=== PATIENT | female | born 1970 | race Caucasian/White ===

== ENCOUNTER 2018-06-11 10:13 | Emergency (ER) | payer BC, OTHER ==
[2018-06-11 10:34] VITALS: BP 123/79
--- NOTE | 2018-06-11 11:28 | CT ---
Head CT Technique: Multiple axial sections through the brain were obtained. Intravenous contrast was not utilized. Comparison: No previous intracranial imaging is available. Findings: Ventricles along with basal cisterns and sulci over the convexities appear within normal limits. No abnormal parenchymal densities are seen. No evidence of intracranial hemorrhage. No midline shift or mass effect is seen. No discrete calvarial abnormality is seen. Mild mucosal thickening is partially visualized within the right maxillary sinus. Impression: 1. Sinus finding most likely pre-existing and chronic. 2. No acute intracranial abnormality is identified. Diagnostic code #2
--- NOTE | 2018-06-11 11:54 | EDM.PDOC ---
ED HPI GENERAL MEDICAL PROBLEM - General Chief Complaint: Head Injury Stated Complaint: HEAD INJURY Time Seen by Provider: 06/11/18 10:29 Source of Information: Reports: Patient, Other (Friend) History Limitations: Reports: No Limitations - History of Present Illness INITIAL COMMENTS - FREE TEXT/NARRATIVE: The patient presents with a head injury. She was dizzy this morning when getting out of bed and his her head on a hinge. She had no LOC. She has a 2.8cm laceration. She did take a xanbar last night. That is xanax in a bar form. She normally does not take that. She has a headache. She has no numbness or weakness. Her tetanus is not up to date. She denies any other injuries. Onset: Sudden Duration: Minutes: Location: Reports: Head Quality: Reports: Sharp Severity: Mild Improves with: Reports: None Worsens with: Reports: None Context: Reports: Trauma (Fell out of bed) Associated Symptoms: Reports: No Other Symptoms front of head Pain Score (Numeric/FACES): 4 - Related Data Allergies Allergy/AdvReac Type Severity Reaction Status Date / Time No Known Allergies Allergy Verified 06/11/18 10:34 Home Meds: Home Meds Lisinopril [Zestril] 40 mg PO BEDTIME 11/22/13 [History] Metoprolol Succinate [Toprol XL 100mg] 100 mg PO BEDTIME 11/22/13 [History] Omeprazole Magnesium [Prilosec] 2.5 mg PO BEDTIME PRN 11/22/13 [History] buPROPion HCl [Wellbutrin SR] 300 mg PO BEDTIME 11/22/13 [History] Docusate Sodium [Colace] 50 mg PO DAILY 12/25/14 [History] QUEtiapine [SEROquel] 25 - 50 mg PO BEDTIME PRN 12/25/14 [History] Sertraline HCl [Zoloft] 100 mg PO QPM 12/25/14 [History] Past Medical History Cardiovascular History: Reports: Hypertension Gastrointestinal History: Reports: Cholelithiasis [employer] 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: Psychiatric History: Reports: Anxiety, Depression - Past Surgical History GI Surgical History: Reports: Appendectomy, Cholecystectomy Social & Family History - Family History Family Medical History: Noncontributory - Tobacco Use Smoking Status *Q: Current Every Day Smoker Years of Tobacco use: 10 Packs/Tins Daily: 0.2 - Caffeine Use Caffeine Use: Reports: Soda - Recreational Drug Use Recreational Drug Use: No ED ROS GENERAL - Review of Systems Review Of Systems: See Below Constitutional: Reports: No Symptoms HEENT: Reports: Other (Laceration to right forehead) Respiratory: Reports: No Symptoms Cardiovascular: Reports: No Symptoms Endocrine: Reports: No Symptoms GI/Abdominal: Reports: No Symptoms : Reports: No Symptoms Musculoskeletal: Reports: No Symptoms Neurological: Reports: Dizziness ED EXAM, HEAD INJURY - Physical Exam Exam: See Below Exam Limited By: No Limitations General Appearance: Alert, No Apparent Distress Head: Other (2.8 laceration to the right forehead) Eyes: Bilateral Eye: EOMI Ears: Normal External Exam Nose: Normal Inspection Neck: Non-Tender, Normal Alignment, Normal Inspection Respiratory: No Respiratory Distress, Lungs Clear, Normal Breath Sounds Cardiovascular: Regular Rate, Rhythm, No Edema, No Murmur GI/Abdominal Exam: Soft, Non-Tender, No Organomegaly, No Mass Back Exam: Normal Inspection Extremities: Normal Inspection ED LACERATION/WOUND & CAROLINE PROC - Laceration/Wound Repair Right Forehead Lac/wound length in cm: 2.8 Appearance: Superficial Skin Prep: Saline Exploration/Debridement/Repair: Wound Explored, In a Bloodless Field, Explored to Base Closed with: Wound Adhesive Tetanus Status Addressed: Yes Complications: No EKG INTERPRETATION EKG Date: 06/11/18 Time: 11:08 Rhythm: NSR Rate (Beats/Min): 91 [place]: Normal P-Wave: Present QRS: Normal ST-T: Other (Flattened anterior T waves) QT: Normal Course - Vital Signs Last Recorded V/S: Last Vital Signs Temp 97 F 06/11/18 10:20 Pulse 87 06/11/18 10:20 Resp 18 06/11/18 10:20 BP 123/79 06/11/18 10:20 Pulse Ox 96 06/11/18 10:20 - Orders/Labs/Meds Orders: Active Orders 24 hr Category Date Time Status Cardiac Monitoring [RC] . DIRECTED Care 06/11/18 11:03 Active EKG Documentation Completion [RC] STAT Care 06/11/18 11:03 Active Vaccines to be Administered [RC] PER UNIT ROUTINE Care 06/11/18 11:55 Active Labs: Laboratory Tests 06/11/18 06/11/18 Range/Units 11:40 11:40 WBC 11.51 H (3.98-10.04) K/mm3 RBC 4.78 (3.98-5.22) M/mm3 Hgb 13.1 (11.2-15.7) gm/L Hct 39.2 (34.1-44.9) % MCV 82.0 (79.4-94.8) fl MCH 27.4 (25.6-32.2) pg MCHC 33.4 (32.2-35.5) g/dl RDW Std Deviation 40.8 (36.4-46.3) fL Plt Count 454 H (182-369) K/mm3 MPV 9.3 L (9.4-12.3) fl Neut % (Auto) 73.5 H (34.0-71.1) % Lymph % (Auto) 18.5 L (19.3-51.7) % [place] % (Auto) 5.9 (4.7-12.5) % Eos % (Auto) 1.5 (0.7-5.8) Baso % (Auto) 0.3 (0.1-1.2) % Neut # (Auto) 8.47 H (1.56-6.13) K/mm3 Lymph # (Auto) 2.13 (1.18-3.74) K/mm3 [place] # (Auto) 0.68 H (0.24-0.36) K/mm3 Eos # (Auto) 0.17 (0.04-0.36) K/mm3 Baso # (Auto) 0.03 (0.01-0.08) K/mm3 Sodium 137 (136-145) mEq/L Potassium 3.6 (3.5-5.1) mEq/L Chloride 103 (98-107) mEq/L Carbon Dioxide 27 (21-32) mEq/L Anion Gap 10.6 (5-15) BUN 11 (7-18) mg/dL Creatinine 1.2 H (0.55-1.02) mg/dL Est Cr Clr Drug Dosing 50.05 mL/min Estimated GFR (MDRD) 48 (>60) mL/min BUN/Creatinine Ratio 9.2 L (14-18) Glucose 126 H (74-106) mg/dL Calcium 9.6 (8.5-10.1) mg/dL Total Bilirubin 0.1 L (0.2-1.0) mg/dL AST 13 L (15-37) U/L ALT 15 (14-59) U/L Alkaline Phosphatase 76 (46-116) U/L Troponin I < 0.017 (0.00-0.056) ng/mL Total Protein 7.3 (6.4-8.2) g/dl Albumin 3.0 L (3.4-5.0) g/dl Globulin 4.3 gm/dL Albumin/Globulin Ratio 0.7 L (1-2) Meds: Medications Discontinued Medications Generic Name Dose Route Start Last Admin Trade Name Freq PRN Reason Stop Dose Admin Diphtheria/Tetanus/Acell Pertussis 0.5 ml 06/11/18 11:55 Adacel IM 06/11/18 11:56 .ONCE ONE Diphtheria/Tetanus/Acell Pertussis Confirm 06/11/18 12:09 06/11/18 12:14 Adacel Administered 06/11/18 12:10 0.5 ml Dose Administration 0.5 ml .ROUTE .STK-MED ONE - Re-Assessments/Exams Free Text/Narrative Re-Assessment/Exam: 06/11/18 11:58 I ordered an EKG, CT of her head, and labs. Her EKG shows a NSR with no acute changes. Her CT shows nothing acute. I up dated her tetanus. 06/11/18 12:[address] looks good. Her WBC was a little elevated at 11.51. His creatinine was elevated at 1.2. His glucose was 126. His troponin was negative. She feels better. I will discharge her home. Departure - Departure Time of Disposition: 12:40 Disposition: Home, Self-Care 01 Condition: Good Clinical Impression: Dizziness, Laceration Fall Qualifiers: Encounter type: initial encounter Qualified Code(s): W19.XXXA - Unspecified fall, initial encounter - Discharge Information *PRESCRIPTION DRUG MONITORING PROGRAM REVIEWED*: No *COPY OF PRESCRIPTION DRUG MONITORING REPORT IN PATIENT GEE: No Referrals: Oralia Alvarez NP [Primary Care Provider] - Forms: ED Department Discharge Additional Instructions: The adhesive will wear off over the next 10 to 14 days. Do not put antibiotic ointment on it. That will break the adhesive down. Avoid taking a large dose of the xanax before bed. Please return if you are worse. - My Orders Last 24 Hours: My Active Orders 06/11/18 11:03 Cardiac Monitoring [RC] . DIRECTED EKG Documentation Completion [RC] STAT 06/11/18 11:55 Vaccines to be Administered [RC] PER UNIT ROUTINE - Assessment/Plan Last 24 Hours: My Active Orders 06/11/18 11:03 Cardiac Monitoring [RC] . DIRECTED EKG Documentation Completion [RC] STAT 06/11/18 11:55 Vaccines to be Administered [RC] PER UNIT ROUTINE
[2018-06-11] MEDS ORDERED: Diphtheria,Pertussis(Acell),Tetanus Vaccine 0.5 ML Syringe IM ONE (11:55)
[2018-06-11] MEDS ORDERED: Diphtheria,Pertussis(Acell),Tetanus Vaccine 0.5 ML SDV ONE (12:09)
== END 2018-06-11 12:45 | disposition home or self-care (01) ==
LOC: JD.ED 10:13
DX: S01.81XA Laceration without foreign body of other part of head, initial encounter (principal); I10 Essential (primary) hypertension; Z79.899 Other long term (current) drug therapy; F17.210 Nicotine dependence, cigarettes, uncomplicated; Z23 Encounter for immunization; W22.8XXA Striking against or struck by other objects, initial encounter
CPT/HCPCS: 12002; 12013; 36415; 70450; 70450-26; 80053; 84484; 85025; 90471; 90715; 93005; 99284-25

== ENCOUNTER 2025-07-03 13:41 | Emergency (ER) | payer BC, OTHER ==
[2025-07-03] MEDS: Acetaminophen/HYDROcodone 325-5 MG Tab PO ONE (15:56)
[2025-07-03 17:27] VITALS: BP 169/78; PULSE 76
== END 2025-07-03 17:27 | disposition home or self-care (01) ==
LOC: JD.ED 13:41
DX: S52.124A Nondisplaced fracture of head of right radius, initial encounter for closed fracture (principal); I10 Essential (primary) hypertension; Z90.49 Acquired absence of other specified parts of digestive tract; Z79.899 Other long term (current) drug therapy; W01.0XXA Fall on same level from slipping, tripping and stumbling without subsequent striking against object, initial encounter
CPT/HCPCS: 29105; 73080; 73090; 99283; A9270; 99284